=== PATIENT | male | born 2000 | race Caucasian/White ===

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

== ENCOUNTER 2020-10-05 19:22 | Observation (INO) | payer SELFPAY ==
[2020-10-05] MEDS ORDERED: LORazepam 2 MG/ML SDV ONE ×3 (19:27→19:35)
[2020-10-05] MEDS ORDERED: LORazepam 2 MG/ML SDV IVPUSH ONE ×4 (19:27→19:35)
[2020-10-05] MEDS ORDERED: Sodium Chloride 0.9% 1,000 ML IV ONE ×3 (19:39→20:01)
[2020-10-05 19:50] LABS: ANION GAP 15.6 mEq/L (7-13); CHLORIDE,CL 105 mmol/L (98-107); SODIUM,NA 147 mmol/L (136-145)
[2020-10-05] MEDS ORDERED: levETIRAcetam in NaCl (iso-os) 1,000 MG in Premix Bag 1 BAG IV ONE ×2 (20:03)
[2020-10-05 20:26] LABS: AMPHETAMINES,URINE NEGATIVE (NEGATIVE); BARBITURATES,URINE NEGATIVE (NEGATIVE); BENZODIAZEPINE,URINE POSITIVE (NEGATIVE); MDMA (ECSTASY), URINE NEGATIVE (NEGATIVE); METHADONE,URINE NEGATIVE (NEGATIVE); METHAMPHETAMINES,URINE NEGATIVE (NEGATIVE); OPIATES,URINE NEGATIVE (NEGATIVE); OXYCODONE,URINE NEGATIVE (NEGATIVE); PHENCYCLIDINE,URINE NEGATIVE (NEGATIVE); TCA,URINE NEGATIVE (NEGATIVE)
--- NOTE | 2020-10-05 20:32 | EDM.PDOC ---
ED HPI GENERAL MEDICAL PROBLEM - General Chief Complaint: Neuro Symptoms/Deficits Stated Complaint: SEIZURES Time Seen by Provider: 10/05/20 19:25 Source of Information: Reports: Patient, RN History Limitations: Reports: Other (Seizures) - History of Present Illness INITIAL COMMENTS - FREE TEXT/NARRATIVE: 20-year-old male who was brought into the ER by family for evaluation of new onset of seizures. Patient reports he was [place] with [place] couple of friends to celebrate a friend's 21st anniversary and had a couple of drinks. They went in to eat a sandwich and he started having seizures. He was noted to be having seizures about every 30 seconds which will last for about 1 to 2 minutes but he is able to carry out a conversation after each seizures. Patient was noted to have about 15-20 seizures in the ER while being given Ativan IV. Patient denies any drug use and states he does not have friends who used drugs. He does admit to drinking alcohol and smokes marijuana but not recently. He denies any family history of seizures but admits his [id number] son has seizures. He reports history of asthma. He also admits he was in the sun longer than usual. - Related Data Allergies Allergy/AdvReac Type Severity Reaction Status Date / Time No Known Allergies Allergy Verified 04/14/17 13:40 Home Meds: Home Meds Albuterol [Proventil HFA] 2 inhaler INH QID PRN 01/06/14 [History] Albuterol [Proventil Neb Soln] 2.5 mg INH QIDRT PRN 10/05/20 [History] Past Medical History - Past Health History Medical/Surgical History: Denies Medical/Surgical History HEENT History: Reports: Impaired Vision Cardiovascular History: Reports: None Respiratory History: Reports: None Gastrointestinal History: Reports: None Genitourinary History: Reports: None Musculoskeletal History: Reports: None Neurological History: Reports: Seizure Psychiatric History: Reports: None Endocrine/Metabolic History: Reports: None Hematologic History: Reports: None Immunologic History: Reports: None Oncologic (Cancer) History: Reports: None Dermatologic History: Reports: None - Infectious Disease History Infectious Disease History: Reports: None - Past Surgical History HEENT Surgical History: Reports: Myringotomy w Tube(s) Cardiovascular Surgical History: Reports: None Respiratory Surgical History: Reports: None GI Surgical History: Reports: None Male Surgical History: Reports: None Endocrine Surgical History: Reports: None Neurological Surgical History: Reports: None Musculoskeletal Surgical History: Reports: None Dermatological Surgical History: Reports: None Social & Family History - Caffeine Use Caffeine Use: Reports: Soda Other Caffeine Use: Hd a mt. wren earlier. ED ROS GENERAL - Review of Systems Review Of Systems: Unable To Obtain Reason Not Obtained: Seizures ED EXAM, NEURO - Physical Exam Exam: See Below Exam Limited By: Other Course - Vital Signs Last Recorded V/S: Last Vital Signs Temp 98.8 F 10/05/20 23:19 Pulse 56 L 10/05/20 23:19 Resp 18 10/05/20 23:19 BP 124/66 10/05/20 23:19 Pulse Ox 100 10/05/20 23:19 - Orders/Labs/Meds Orders: Medication Orders Acetaminophen (Acetaminophen 325 Mg Tab) 650 mg PO Q4H PRN PRN Reason: Pain (Mild 1-3)/fever Sodium Chloride (Sodium Chloride 0.45%) 1,000 mls @ 100 mls/hr IV ASDIRECTED ROSEANNA Last Admin: 10/06/20 00:13 Dose: 100 mls/hr Documented by: ARIANNE Levetiracetam (Levetiracetam 500 Mg Tab) 1,000 mg PO BID ROSEANNA Lorazepam (Lorazepam 2 Mg/Ml Sdv) 1 mg IVPUSH Q2H PRN PRN Reason: Seizures Ondansetron HCl (Ondansetron 4 Mg/2 Ml Sdv) 4 mg IVPUSH Q4H PRN PRN Reason: Nausea/Vomiting Sodium Chloride (Sodium Chloride 0.9% 10 Ml Syringe) 10 ml FLUSH ASDIRECTED PRN PRN Reason: Keep Vein Open Labs: Laboratory Tests 10/05/20 10/05/20 10/05/20 Range/Units 19:30 19:30 20:15 WBC 7.4 (5.0-10.0) 10^3/uL RBC 5.22 (4.6-6.2) 10^6/uL Hgb 15.8 (14.0-18.0) g/dL Hct 43.8 (40.0-54.0) % MCV 83.9 D (80-100) fL MCH 30.3 (27.0-34.0) pg MCHC 36.1 H (33.0-35.0) g/dL Plt Count 263 (150-450) 10^3/uL Neut % (Auto) 58.7 (42.2-75.2) % Lymph % (Auto) 35.2 (20.5-50.1) % [place] % (Auto) 4.3 (2-8) % Eos % (Auto) 1.4 (1.0-3.0) % Baso % (Auto) 0.4 (0.0-1.0) % Sodium 147 H (136-145) mmol/L Potassium 3.6 (3.5-5.1) mmol/L Chloride 105 (98-107) mmol/L Carbon Dioxide 30 (21-32) mmol/L Anion Gap 15.6 H (7-13) mEq/L BUN 9 (7-18) mg/dL Creatinine 1.02 (0.70-1.30) mg/dL Est Cr Clr Drug Dosing TNP Estimated GFR (MDRD) > 60 BUN/Creatinine Ratio 8.8 (No establ ref range) Glucose 99 (70-99) mg/dL Calcium 8.9 (8.5-10.1) mg/dL Total Bilirubin 0.7 (0.2-1.0) mg/dL AST 16 (15-37) U/L ALT 25 (16-63) U/L Alkaline Phosphatase 61 (46-116) U/L Total Protein 7.5 (6.4-8.2) g/dL Albumin 4.5 (3.4-5.0) g/dL Globulin 3.0 Albumin/Globulin Ratio 1.5 Urine Opiates Screen Negative (NEGATIVE) Ur Oxycodone Screen Negative (NEGATIVE) Urine Methadone Screen Negative (NEGATIVE) Ur Barbiturates Screen Negative (NEGATIVE) U Tricyclic Antidepress Negative (NEGATIVE) Ur Phencyclidine Scrn Negative (NEGATIVE) Ur Amphetamine Screen Negative (NEGATIVE) U Methamphetamines Scrn Negative (NEGATIVE) Urine MDMA Screen Negative (NEGATIVE) U Benzodiazepines Scrn Positive H (NEGATIVE) Urine Cocaine Screen Negative (NEGATIVE) U Marijuana (THC) Screen Positive H (NEGATIVE) Ethyl Alcohol 119 (0) mg/dL SARS-CoV-2 RNA (ASHLEY) (NEGATIVE) 10/05/20 Range/Units 22:32 WBC (5.0-10.0) 10^3/uL RBC (4.6-6.2) 10^6/uL Hgb (14.0-18.0) g/dL Hct (40.0-54.0) % MCV (80-100) fL MCH (27.0-34.0) pg MCHC (33.0-35.0) g/dL Plt Count (150-450) 10^3/uL Neut % (Auto) (42.2-75.2) % Lymph % (Auto) (20.5-50.1) % [place] % (Auto) (2-8) % Eos % (Auto) (1.0-3.0) % Baso % (Auto) (0.0-1.0) % Sodium (136-145) mmol/L Potassium (3.5-5.1) mmol/L Chloride (98-107) mmol/L Carbon Dioxide (21-32) mmol/L Anion Gap (7-13) mEq/L BUN (7-18) mg/dL Creatinine (0.70-1.30) mg/dL Est Cr Clr Drug Dosing Estimated GFR (MDRD) BUN/Creatinine Ratio (No establ ref range) Glucose (70-99) mg/dL Calcium (8.5-10.1) mg/dL Total Bilirubin (0.2-1.0) mg/dL AST (15-37) U/L ALT (16-63) U/L Alkaline Phosphatase (46-116) U/L Total Protein (6.4-8.2) g/dL Albumin (3.4-5.0) g/dL Globulin Albumin/Globulin Ratio Urine Opiates Screen (NEGATIVE) Ur Oxycodone Screen (NEGATIVE) Urine Methadone Screen (NEGATIVE) Ur Barbiturates Screen (NEGATIVE) U Tricyclic Antidepress (NEGATIVE) Ur Phencyclidine Scrn (NEGATIVE) Ur Amphetamine Screen (NEGATIVE) U Methamphetamines Scrn (NEGATIVE) Urine MDMA Screen (NEGATIVE) U Benzodiazepines Scrn (NEGATIVE) Urine Cocaine Screen (NEGATIVE) U Marijuana (THC) Screen (NEGATIVE) Ethyl Alcohol (0) mg/dL SARS-CoV-2 RNA (ASHLEY) Negative (NEGATIVE) Meds: Medications Generic Name Dose Route Start Last Admin Trade Name Freq PRN Reason Stop Dose Admin Acetaminophen 650 mg 10/05/20 23:19 Acetaminophen 325 Mg Tab PO Q4H PRN Pain (Mild 1-3)/fever Sodium Chloride 1,000 mls @ 100 mls/hr 10/05/20 23:30 10/06/20 00:13 Sodium Chloride 0.45% IV 100 mls/hr ASDIRECTED ROSEANNA Administration Levetiracetam 1,000 mg 10/06/20 09:00 Levetiracetam 500 Mg Tab PO BID ROSEANNA Lorazepam 1 mg 10/05/20 23:21 Lorazepam 2 Mg/Ml Sdv IVPUSH Q2H PRN Seizures Ondansetron HCl 4 mg 10/05/20 23:19 Ondansetron 4 Mg/2 Ml Sdv IVPUSH Q4H PRN Nausea/Vomiting Sodium Chloride 10 ml 10/05/20 23:19 Sodium Chloride 0.9% 10 Ml Syringe FLUSH ASDIRECTED PRN Keep Vein Open Discontinued Medications Generic Name Dose Route Start Last Admin Trade Name Freq PRN Reason Stop Dose Admin Levetiracetam Confirm 10/05/20 19:31 10/05/20 19:37 Levetiracetam In Nacl (Iso-Os) Administered 10/05/20 19:32 Not Given Dose 200 mls @ as directed .ROUTE .STK-MED ONE Sodium Chloride 1,000 mls @ 1,000 mls/hr 10/05/20 19:39 10/05/20 19:28 Normal Saline IV 10/05/20 20:38 1,000 mls/hr .BOLUS ONE Administration Sodium Chloride 1,000 mls @ 1,000 mls/hr 10/05/20 19:40 10/05/20 19:33 Normal Saline IV 10/05/20 20:39 1,000 mls/hr .BOLUS ONE Administration Sodium Chloride 1,000 mls @ 1,000 mls/hr 10/05/20 20:01 10/05/20 20:00 Normal Saline IV 10/05/20 21:00 1,000 mls/hr .BOLUS ONE Administration Levetiracetam 1,000 mg/ Premix 200 mls @ 800 mls/hr 10/05/20 20:03 10/05/20 19:37 IV 10/05/20 20:04 800 mls/hr ONETIME ONE Administration Lorazepam Confirm 10/05/20 19:27 10/05/20 19:28 Lorazepam 2 Mg/Ml Sdv Administered 10/05/20 19:28 Not Given Dose 2 mg .ROUTE .STK-MED ONE Lorazepam Confirm 10/05/20 19:30 10/05/20 19:29 Lorazepam 2 Mg/Ml Sdv Administered 10/05/20 19:31 Not Given Dose 2 mg .ROUTE .STK-MED ONE Lorazepam Confirm 10/05/20 19:35 10/05/20 19:33 Lorazepam 2 Mg/Ml Sdv Administered 10/05/20 19:36 Not Given Dose 2 mg .ROUTE .STK-MED ONE Lorazepam 1 mg 10/05/20 19:27 10/05/20 19:27 Lorazepam 2 Mg/Ml Sdv IVPUSH 10/05/20 19:28 1 mg ONETIME ONE Administration Lorazepam 1 mg 10/05/20 19:29 10/05/20 19:29 Lorazepam 2 Mg/Ml Sdv IVPUSH 10/05/20 19:30 1 mg ONETIME ONE Administration Lorazepam 2 mg 10/05/20 19:33 10/05/20 19:33 Lorazepam 2 Mg/Ml Sdv IVPUSH 10/05/20 19:34 2 mg ONETIME ONE Administration Lorazepam 2 mg 10/05/20 19:35 10/05/20 19:35 Lorazepam 2 Mg/Ml Sdv IVPUSH 10/05/20 19:36 2 mg ONETIME ONE Administration - Re-Assessments/Exams Free Text/Narrative Re-Assessment/Exam: Reviewed exam findings, CT and lab results with patient and family. Ativan 6mg, NS 1000/ml x 3 units and Keppra 1000mg IV administered. Seizures abarted after Ativan 6 mg and IV Keppra. Consulted with who recommended patient could be discharged home with Keppra BID when stable and/or follow up with PCP for Neurology referral. Patient also informed that he is not supposed to be driving in the next six months per neurology. Reviewed this with patient and family. Discussed with about admitting patient for observation and he accepted patient for admission. Patient family in agreement to plan. Departure - Departure Time of Disposition: 23:00 Disposition: Admitted As Inpatient 65 Condition: Good Clinical Impression: Alcohol abuse, Seizure, Marijuana abuse - Discharge Information Sepsis Event Note (ED) - Evaluation Sepsis Screening Result: No Definite Risk - Focused Exam Vital Signs: Vital Signs Temp Pulse Resp BP Pulse Ox 10/05/20 19:22 98.5 F 108 H 24 H 120/66 100
--- NOTE | 2020-10-05 20:34 | CT ---
PROCEDURE INFORMATION: Exam: CT Head Without Contrast Exam date and time: 10/05/2020 7:46 PM Age: 20 years old Clinical indication: Other: Seizures--new onset TECHNIQUE: Imaging protocol: Computed tomography of the head without contrast. Radiation optimization: All CT scans at this facility use at least one of these dose optimization techniques: automated exposure control; mA and/or kV adjustment per patient size (includes targeted exams where dose is matched to clinical indication); or iterative reconstruction. COMPARISON: No relevant prior studies available. FINDINGS: Brain: Normal. No hemorrhage. Unremarkable white matter. No mass effect. Cerebral ventricles: No ventriculomegaly. Paranasal sinuses: Bilateral maxillary and ethmoid sinusitis. Mastoid air cells: Visualized mastoid air cells are well aerated. Bones/joints: Unremarkable. No acute fracture. Soft tissues: Unremarkable. IMPRESSION: 1. Bilateral maxillary and ethmoid sinusitis. 2. No acute intracranial findings.
[2020-10-05] MEDS ORDERED: Acetaminophen 325 MG Tab PO PRN (23:19)
[2020-10-05] MEDS ORDERED: Ondansetron 4 MG/2 ML SDV IVPUSH PRN (23:19)
[2020-10-05] MEDS ORDERED: Sodium Chloride 0.9% 10 ML Syringe FLUSH PRN (23:19)
[2020-10-05] MEDS ORDERED: LORazepam 2 MG/ML SDV IVPUSH PRN (23:21)
--- NOTE | 2020-10-05 23:27 | PCM.HP ---
H&P History of Present Illness - General Date of Service: 10/05/20 Admit Problem/Dx: Admission Diagnosis/Problem Admission Diagnosis/Problem Seizure - History of Present Illness Initial Comments - Free Text/Narative: The patient is a 20-year-old male who presents with chief complaint of seizurenew onset. Per the patient's female business assistant, the patient was on a boat today and the son with friends when he exhibited what appeared to be a dystonic facial reaction. He had recurrent episodes and then in the emergency department he apparently had tonic-clonic episodes which required frequent doses of IV as needed Ativan. Unfortunately at the time of admission, the patient is sedated from the Ativan that he received and information is gathered from his female business assistant along with his family members. The patient presents for further evaluation - Related Data Allergies/Adverse Reactions: Allergies Allergy/AdvReac Type Severity Reaction Status Date / Time No Known Allergies Allergy Verified 04/14/17 13:40 Home Medications: Home Meds Albuterol [Proventil HFA] 2 inhaler INH QID PRN 01/06/14 [History] Albuterol [Proventil Neb Soln] 2.5 mg INH QIDRT PRN 10/05/20 [History] Past Medical History - Past Health History Medical/Surgical History: Denies Medical/Surgical History HEENT History: Reports: Impaired Vision Cardiovascular History: Reports: None Respiratory History: Reports: None Gastrointestinal History: Reports: None Genitourinary History: Reports: None Musculoskeletal History: Reports: None Neurological History: Reports: Seizure Psychiatric History: Reports: None Endocrine/Metabolic History: Reports: None Hematologic History: Reports: None Immunologic History: Reports: None Oncologic (Cancer) History: Reports: None Dermatologic History: Reports: None - Infectious Disease History Infectious Disease History: Reports: None - Past Surgical History HEENT Surgical History: Reports: Myringotomy w Tube(s) Cardiovascular Surgical History: Reports: None Respiratory Surgical History: Reports: None GI Surgical History: Reports: None Male Surgical History: Reports: None Endocrine Surgical History: Reports: None Neurological Surgical History: Reports: None Musculoskeletal Surgical History: Reports: None Dermatological Surgical History: Reports: None Social & Family History - Tobacco Use Tobacco Use Status *Q: Current Every Day Tobacco User Years of Tobacco use: 5 Packs/Tins Daily: 0 - Caffeine Use Caffeine Use: Reports: None Other Caffeine Use: Hiren wren earlier. - Alcohol Use Date of Last Drink: 10/05/20 - Recreational Drug Use Recreational Drug Use: No H&P Review of Systems - Review of Systems: Review Of Systems: See Below General: Reports: No Symptoms HEENT: Reports: No Symptoms Pulmonary: Reports: No Symptoms Cardiovascular: Reports: No Symptoms Gastrointestinal: Reports: No Symptoms Genitourinary: Reports: No Symptoms Musculoskeletal: Reports: No Symptoms Skin: Reports: No Symptoms Psychiatric: Reports: No Symptoms Neurological: Reports: No Symptoms Hematologic/Lymphatic: Reports: No Symptoms Immunologic: Reports: No Symptoms Exam - Exam Exam: See Below - Vital Signs Vital Signs: Last Vital Signs Temp 98.5 F 10/05/20 19:22 Pulse 108 H 10/05/20 19:22 Resp 24 H 10/05/20 19:22 BP 120/66 10/05/20 19:22 Pulse Ox 100 10/05/20 19:22 - Exam General: Sedated HEENT: PERRLA, Hearing Intact, Mucosa Moist & Falcon, Nares Patent, Normal Nasal Septum, Posterior Pharynx Clear, Conjunctiva Clear, EOMI, EACs Clear, TMs Clear Neck: Supple, Trachea Midline, 2 Lungs: Clear to Auscultation, Normal Respiratory Effort Cardiovascular: Regular Rate, Regular Rhythm GI/Abdominal Exam: Normal Bowel Sounds, Soft, Non-Tender, No Organomegaly, No Distention, No Abnormal Bruit, No Mass, Pelvis Stable Back Exam: Normal Inspection, Full Range of Motion, NT Extremities: Normal Inspection, Normal Range of Motion, Non-Tender, No Pedal Edema, Normal Capillary Refill Peripheral Pulses: 2+: Carotid (L), Carotid (R), Brachial (L), Brachial (R), Radial (L), Radial (R), Femoral (L), Femoral (R), Popliteal (L), Popliteal (R), Posterior Tibial (L), Posterior Tibial (R), Dorsalis Pedis (L), Dorsalis Pedis (R) Skin: Warm, Dry, Intact Neurological: Cranial Nerves Intact, Reflexes Equal Bilateral Neuro Extensive - Mental Status: Alert, Oriented x3, Normal Mood/Affect, Normal Cognition Neuro Extensive - Motor, Sensory, Reflexes: CN II-XII Intact, Normal Gait, Normal Reflexes DTR: 2+: Bicep (L), Bicep (R), Tricep (L), Tricep (R), Patella (L), Patella (R), Achilles (L), Achilles (R) Psychiatric: Alert, Normal Affect, Normal Mood - Patient Data Lab Results Last 24 hrs: Laboratory Results - last 24 hr 10/05/20 10/05/20 10/05/20 Range/Units 19:30 19:30 20:15 WBC 7.4 (5.0-10.0) 10^3/uL RBC 5.22 (4.6-6.2) 10^6/uL Hgb 15.8 (14.0-18.0) g/dL Hct 43.8 (40.0-54.0) % MCV 83.9 D (80-100) fL MCH 30.3 (27.0-34.0) pg MCHC 36.1 H (33.0-35.0) g/dL Plt Count 263 (150-450) 10^3/uL Neut % (Auto) 58.7 (42.2-75.2) % Lymph % (Auto) 35.2 (20.5-50.1) % [place] % (Auto) 4.3 (2-8) % Eos % (Auto) 1.4 (1.0-3.0) % Baso % (Auto) 0.4 (0.0-1.0) % Sodium 147 H (136-145) mmol/L Potassium 3.6 (3.5-5.1) mmol/L Chloride 105 (98-107) mmol/L Carbon Dioxide 30 (21-32) mmol/L Anion Gap 15.6 H (7-13) mEq/L BUN 9 (7-18) mg/dL Creatinine 1.02 (0.70-1.30) mg/dL Est Cr Clr Drug Dosing TNP Estimated GFR (MDRD) > 60 BUN/Creatinine Ratio 8.8 (No establ ref range) Glucose 99 (70-99) mg/dL Calcium 8.9 (8.5-10.1) mg/dL Total Bilirubin 0.7 (0.2-1.0) mg/dL AST 16 (15-37) U/L ALT 25 (16-63) U/L Alkaline Phosphatase 61 (46-116) U/L Total Protein 7.5 (6.4-8.2) g/dL Albumin 4.5 (3.4-5.0) g/dL Globulin 3.0 Albumin/Globulin Ratio 1.5 Urine Opiates Screen Negative (NEGATIVE) Ur Oxycodone Screen Negative (NEGATIVE) Urine Methadone Screen Negative (NEGATIVE) Ur Barbiturates Screen Negative (NEGATIVE) U Tricyclic Antidepress Negative (NEGATIVE) Ur Phencyclidine Scrn Negative (NEGATIVE) Ur Amphetamine Screen Negative (NEGATIVE) U Methamphetamines Scrn Negative (NEGATIVE) Urine MDMA Screen Negative (NEGATIVE) U Benzodiazepines Scrn Positive H (NEGATIVE) Urine Cocaine Screen Negative (NEGATIVE) U Marijuana (THC) Screen Positive H (NEGATIVE) Ethyl Alcohol 119 (0) mg/dL Result Diagrams: 10/05/20 19:30 10/05/20 19:30 Problem List Initiated/Reviewed/Updated: Yes Orders Last 24hrs: Active Orders 24 hr Category Date Time Status Admission Diagnosis [ADT] Stat ADT 10/05/20 23:04 Ordered Admission Status [Patient Status] [ADT] Routine ADT 10/05/20 23:04 Active Antiembolic Devices [RC] PER UNIT ROUTINE Care 10/05/20 23:20 Ordered Peripheral IV Care [RC] . DIRECTED Care 10/05/20 23:20 Ordered Up With Assistance [RC] ASDIRECTED Care 10/05/20 23:19 Ordered Vital Signs [RC] Q4H Care 10/05/20 23:19 Ordered Regular Diet [DIET] Diet 10/05/20 Breakfast Ordered CORONAVIRUS COVID-19 ASHLEY [MOLEC] Urgent Lab 10/05/20 22:32 Received MAGNESIUM [CHEM] Routine Lab 10/06/20 05:00 Ordered SODIUM,NA [CHEM] Routine Lab 10/06/20 05:00 Ordered Acetaminophen [TylenoL] Med 10/05/20 23:19 Ordered 650 mg PO Q4H PRN LORazepam [Ativan] Med 10/05/20 23:21 Ordered 1 mg IVPUSH Q2H PRN Ondansetron [Zofran] Med 10/05/20 23:19 Ordered 4 mg IVPUSH Q4H PRN Sodium Chloride 0.45% @ 100 MLS/HR(1,000ml) Med 10/05/20 23:30 Ordered Sodium Chloride 0.45% 1,000 ml IV ASDIRECTED Sodium Chloride 0.9% [Saline Flush] Med 10/05/20 23:19 Ordered 10 ml FLUSH ASDIRECTED PRN levETIRAcetam [Keppra] Med 10/06/20 09:00 Ordered 1,000 mg PO BID Peripheral IV Insertion Adult [OM.PC] Routine Oth 10/05/20 23:19 Ordered Seizure Precautions [OM.PC] Routine Oth 10/05/20 23:20 Ordered Sequential Compression Device [OM.PC] Per Unit Routine Oth 10/05/20 23:20 Ordered Resuscitation Status Routine Resus Stat 10/05/20 23:19 Ordered Medication Orders Acetaminophen (Acetaminophen 325 Mg Tab) 650 mg PO Q4H PRN PRN Reason: Pain (Mild 1-3)/fever Ondansetron HCl (Ondansetron 4 Mg/2 Ml Sdv) 4 mg IVPUSH Q4H PRN PRN Reason: Nausea/Vomiting Sodium Chloride (Sodium Chloride 0.9% 10 Ml Syringe) 10 ml FLUSH ASDIRECTED PRN PRN Reason: Keep Vein Open Assessment/Plan Comment:: Surgical History: Per patient's family members: Bilateral myringotomy tube placement, wisdom tooth extraction Family History: Per patient's family members: Cancer, stroke, diabetes, coronary artery disease, hypertension, hyperlipidemia Social History: Tobacco: Per patient's family members: The patient vapes Alcohol: Per patient's family members: The patient drinks intermittently however he appears to have episodes of binge drinking when he does Caffeine: Per the patient's family members: Cola Drugs: Per the patient family members: Marijuana Allergies: Per the patient's family members: No known drug allergies Code Status: Full Assessment / Plan: Seizure, new onset. Possibly alcohol use. Seizure precautions. Keppra 1000 mg IV every 12 hours Hypernatremia. Will monitor sodium levels intermittently. IV half-normal saline at 100 mL's per hour Asthma Marijuana abuse. Patient be counseled regarding marijuana cessation. Tobacco abuse via vaping. The patient will be counseled regarding tobacco cessation DVT prophylaxis. Bilateral CD Disposition: Anticipate discharge in 24 hours with outpatient follow-up with neurology END DOCTOR SANTOS HISTORY AND PHYSICAL / CONSULTATION NOTE
[2020-10-06] MEDS: Sodium Chloride 0.45% 1,000 ML IV SCH ×2 (00:13→10:40)
--- NOTE | 2020-10-06 07:25 | PCM.PN ---
- General Info Date of Service: 10/06/20 Subjective Update: Patient indicates that he is feeling better overall. Per the nursing staff, left patient received Ativan was approximately 1900 on the evening of October 05, 2020. The patient denies fever, rigors, nausea, vomiting, cough, wheeze, abdominal pain, dyspnea, diplopia, blurry vision, dysphagia, dysphagia, paresthesia/anesthesia/myesthesia of any part of his body. I explained to the patient his current medical condition and plan of care and have answered all of his questions - Review of Systems General: Reports: No Symptoms HEENT: Reports: No Symptoms Pulmonary: Reports: No Symptoms Cardiovascular: Reports: No Symptoms Gastrointestinal: Reports: No Symptoms Genitourinary: Reports: No Symptoms Musculoskeletal: Reports: No Symptoms Skin: Reports: No Symptoms Neurological: Reports: No Symptoms Psychiatric: Reports: No Symptoms - Patient Data Vitals - Most Recent: Last Vital Signs Temp 97.9 F 10/06/20 04:00 Pulse 74 10/06/20 04:00 Resp 18 10/06/20 04:00 BP 90/43 L 10/06/20 04:00 Pulse Ox 95 10/06/20 04:00 Weight - Most Recent: 170 lb 4.8 oz I&O - Last 24 Hours: Intake & Output 10/05/20 10/06/20 10/06/20 22:59 06:59 14:59 Intake Total 50 Balance 50 Lab Results Last 24 Hours: Laboratory Results - last 24 hr 10/05/20 10/05/20 10/05/20 Range/Units 19:30 19:30 20:15 WBC 7.4 (5.0-10.0) 10^3/uL RBC 5.22 (4.6-6.2) 10^6/uL Hgb 15.8 (14.0-18.0) g/dL Hct 43.8 (40.0-54.0) % MCV 83.9 D (80-100) fL MCH 30.3 (27.0-34.0) pg MCHC 36.1 H (33.0-35.0) g/dL Plt Count 263 (150-450) 10^3/uL Neut % (Auto) 58.7 (42.2-75.2) % Lymph % (Auto) 35.2 (20.5-50.1) % [place] % (Auto) 4.3 (2-8) % Eos % (Auto) 1.4 (1.0-3.0) % Baso % (Auto) 0.4 (0.0-1.0) % Sodium 147 H (136-145) mmol/L Potassium 3.6 (3.5-5.1) mmol/L Chloride 105 (98-107) mmol/L Carbon Dioxide 30 (21-32) mmol/L Anion Gap 15.6 H (7-13) mEq/L BUN 9 (7-18) mg/dL Creatinine 1.02 (0.70-1.30) mg/dL Est Cr Clr Drug Dosing TNP Estimated GFR (MDRD) > 60 BUN/Creatinine Ratio 8.8 (No establ ref range) Glucose 99 (70-99) mg/dL Calcium 8.9 (8.5-10.1) mg/dL Magnesium (1.8-2.4) mg/dL Total Bilirubin 0.7 (0.2-1.0) mg/dL AST 16 (15-37) U/L ALT 25 (16-63) U/L Alkaline Phosphatase 61 (46-116) U/L Total Protein 7.5 (6.4-8.2) g/dL Albumin 4.5 (3.4-5.0) g/dL Globulin 3.0 Albumin/Globulin Ratio 1.5 Urine Opiates Screen Negative (NEGATIVE) Ur Oxycodone Screen Negative (NEGATIVE) Urine Methadone Screen Negative (NEGATIVE) Ur Barbiturates Screen Negative (NEGATIVE) U Tricyclic Antidepress Negative (NEGATIVE) Ur Phencyclidine Scrn Negative (NEGATIVE) Ur Amphetamine Screen Negative (NEGATIVE) U Methamphetamines Scrn Negative (NEGATIVE) Urine MDMA Screen Negative (NEGATIVE) U Benzodiazepines Scrn Positive H (NEGATIVE) Urine Cocaine Screen Negative (NEGATIVE) U Marijuana (THC) Screen Positive H (NEGATIVE) Ethyl Alcohol 119 (0) mg/dL SARS-CoV-2 RNA (ASHLEY) (NEGATIVE) 10/05/20 10/06/20 Range/Units 22:32 05:40 WBC (5.0-10.0) 10^3/uL RBC (4.6-6.2) 10^6/uL Hgb (14.0-18.0) g/dL Hct (40.0-54.0) % MCV (80-100) fL MCH (27.0-34.0) pg MCHC (33.0-35.0) g/dL Plt Count (150-450) 10^3/uL Neut % (Auto) (42.2-75.2) % Lymph % (Auto) (20.5-50.1) % [place] % (Auto) (2-8) % Eos % (Auto) (1.0-3.0) % Baso % (Auto) (0.0-1.0) % Sodium 144 (136-145) mmol/L Potassium (3.5-5.1) mmol/L Chloride (98-107) mmol/L Carbon Dioxide (21-32) mmol/L Anion Gap (7-13) mEq/L BUN (7-18) mg/dL Creatinine (0.70-1.30) mg/dL Est Cr Clr Drug Dosing Estimated GFR (MDRD) BUN/Creatinine Ratio (No establ ref range) Glucose (70-99) mg/dL Calcium (8.5-10.1) mg/dL Magnesium 1.8 (1.8-2.4) mg/dL Total Bilirubin (0.2-1.0) mg/dL AST (15-37) U/L ALT (16-63) U/L Alkaline Phosphatase (46-116) U/L Total Protein (6.4-8.2) g/dL Albumin (3.4-5.0) g/dL Globulin Albumin/Globulin Ratio Urine Opiates Screen (NEGATIVE) Ur Oxycodone Screen (NEGATIVE) Urine Methadone Screen (NEGATIVE) Ur Barbiturates Screen (NEGATIVE) U Tricyclic Antidepress (NEGATIVE) Ur Phencyclidine Scrn (NEGATIVE) Ur Amphetamine Screen (NEGATIVE) U Methamphetamines Scrn (NEGATIVE) Urine MDMA Screen (NEGATIVE) U Benzodiazepines Scrn (NEGATIVE) Urine Cocaine Screen (NEGATIVE) U Marijuana (THC) Screen (NEGATIVE) Ethyl Alcohol (0) mg/dL SARS-CoV-2 RNA (ASHLEY) Negative (NEGATIVE) Med Orders - Current: Current Medications Acetaminophen (Acetaminophen 325 Mg Tab) 650 mg PO Q4H PRN PRN Reason: Pain (Mild 1-3)/fever Sodium Chloride (Sodium Chloride 0.45%) 1,000 mls @ 100 mls/hr IV ASDIRECTED [facility] Last Admin: 10/06/20 00:13 Dose: 100 mls/hr Documented by: Levetiracetam (Levetiracetam 500 Mg Tab) 1,000 mg PO BID ROSEANNA Lorazepam (Lorazepam 2 Mg/Ml Sdv) 1 mg IVPUSH Q2H PRN PRN Reason: Seizures Ondansetron HCl (Ondansetron 4 Mg/2 Ml Sdv) 4 mg IVPUSH Q4H PRN PRN Reason: Nausea/Vomiting Sodium Chloride (Sodium Chloride 0.9% 10 Ml Syringe) 10 ml FLUSH ASDIRECTED PRN PRN Reason: Keep Vein Open Discontinued Medications Levetiracetam (Levetiracetam In Nacl (Iso-Os)) Confirm Administered Dose 200 mls @ as directed .ROUTE .STK-MED ONE Stop: 10/05/20 19:32 Last Admin: 10/05/20 19:37 Dose: Not Given Documented by: Sodium Chloride (Normal Saline) 1,000 mls @ 1,000 mls/hr IV .BOLUS ONE Stop: 10/05/20 20:38 Last Admin: 10/05/20 19:28 Dose: 1,000 mls/hr Documented by: Sodium Chloride (Normal Saline) 1,000 mls @ 1,000 mls/hr IV .BOLUS ONE Stop: 10/05/20 20:39 Last Admin: 10/05/20 19:33 Dose: 1,000 mls/hr Documented by: Sodium Chloride (Normal Saline) 1,000 mls @ 1,000 mls/hr IV .BOLUS ONE Stop: 10/05/20 21:00 Last Admin: 10/05/20 20:00 Dose: 1,000 mls/hr Documented by: Levetiracetam 1,000 mg/ Premix 200 mls @ 800 mls/hr IV ONETIME ONE Stop: 10/05/20 20:04 Last Admin: 10/05/20 19:37 Dose: 800 mls/hr Documented by: Lorazepam (Lorazepam 2 Mg/Ml Sdv) Confirm Administered Dose 2 mg .ROUTE .STK-MED ONE Stop: 10/05/20 19:28 Last Admin: 10/05/20 19:28 Dose: Not Given Documented by: Lorazepam (Lorazepam 2 Mg/Ml Sdv) Confirm Administered Dose 2 mg .ROUTE .STK-MED ONE Stop: 10/05/20 19:31 Last Admin: 10/05/20 19:29 Dose: Not Given Documented by: Lorazepam (Lorazepam 2 Mg/Ml Sdv) Confirm Administered Dose 2 mg .ROUTE .STK-MED ONE Stop: 10/05/20 19:36 Last Admin: 10/05/20 19:33 Dose: Not Given Documented by: Lorazepam (Lorazepam 2 Mg/Ml Sdv) 1 mg IVPUSH ONETIME ONE Stop: 10/05/20 19:28 Last Admin: 10/05/20 19:27 Dose: 1 mg Documented by: Lorazepam (Lorazepam 2 Mg/Ml Sdv) 1 mg IVPUSH ONETIME ONE Stop: 10/05/20 19:30 Last Admin: 10/05/20 19:29 Dose: 1 mg Documented by: Lorazepam (Lorazepam 2 Mg/Ml Sdv) 2 mg IVPUSH ONETIME ONE Stop: 10/05/20 19:34 Last Admin: 10/05/20 19:33 Dose: 2 mg Documented by: Lorazepam (Lorazepam 2 Mg/Ml Sdv) 2 mg IVPUSH ONETIME ONE Stop: 10/05/20 19:36 Last Admin: 10/05/20 19:35 Dose: 2 mg Documented by: - Exam General: Alert, Oriented HEENT: Pupils Equal, Pupils Reactive, EOMI, Mucous Membr. Moist/[place] Neck: Supple Lungs: Clear to Auscultation, Normal Respiratory Effort Cardiovascular: Regular Rate, Regular Rhythm GI/Abdominal Exam: Normal Bowel Sounds, Soft, Non-Tender, No Organomegaly, No Distention, No Abnormal Bruit, No Mass, Pelvis Stable Back Exam: Normal Inspection, Full Range of Motion Extremities: Normal Inspection, Normal Range of Motion, Non-Tender, No Pedal Edema, Normal Capillary Refill Peripheral Pulses: 2+: Carotid (L), Carotid (R), Brachial (L), Brachial (R), Radial (L), Radial (R), Femoral (L), Femoral (R), Popliteal (L), Popliteal (R), Posterior Tibial (L), Posterior Tibial (R), Dorsalis Pedis (L), Dorsalis Pedis (R) Skin: Warm, Dry, Intact Wound/Incisions: Healing Well Neurological: No New Focal Deficit Psy/Mental Status: Alert, Normal Affect, Normal Mood - Patient Data Lab Results Last 24 hrs: Laboratory Results - last 24 hr 10/05/20 10/05/20 10/05/20 Range/Units 19:30 19:30 20:15 WBC 7.4 (5.0-10.0) 10^3/uL RBC 5.22 (4.6-6.2) 10^6/uL Hgb 15.8 (14.0-18.0) g/dL Hct 43.8 (40.0-54.0) % MCV 83.9 D (80-100) fL MCH 30.3 (27.0-34.0) pg MCHC 36.1 H (33.0-35.0) g/dL Plt Count 263 (150-450) 10^3/uL Neut % (Auto) 58.7 (42.2-75.2) % Lymph % (Auto) 35.2 (20.5-50.1) % [place] % (Auto) 4.3 (2-8) % Eos % (Auto) 1.4 (1.0-3.0) % Baso % (Auto) 0.4 (0.0-1.0) % Sodium 147 H (136-145) mmol/L Potassium 3.6 (3.5-5.1) mmol/L Chloride 105 (98-107) mmol/L Carbon Dioxide 30 (21-32) mmol/L Anion Gap 15.6 H (7-13) mEq/L BUN 9 (7-18) mg/dL Creatinine 1.02 (0.70-1.30) mg/dL Est Cr Clr Drug Dosing TNP Estimated GFR (MDRD) > 60 BUN/Creatinine Ratio 8.8 (No establ ref range) Glucose 99 (70-99) mg/dL Calcium 8.9 (8.5-10.1) mg/dL Magnesium (1.8-2.4) mg/dL Total Bilirubin 0.7 (0.2-1.0) mg/dL AST 16 (15-37) U/L ALT 25 (16-63) U/L Alkaline Phosphatase 61 (46-116) U/L Total Protein 7.5 (6.4-8.2) g/dL Albumin 4.5 (3.4-5.0) g/dL Globulin 3.0 Albumin/Globulin Ratio 1.5 Urine Opiates Screen Negative (NEGATIVE) Ur Oxycodone Screen Negative (NEGATIVE) Urine Methadone Screen Negative (NEGATIVE) Ur Barbiturates Screen Negative (NEGATIVE) U Tricyclic Antidepress Negative (NEGATIVE) Ur Phencyclidine Scrn Negative (NEGATIVE) Ur Amphetamine Screen Negative (NEGATIVE) U Methamphetamines Scrn Negative (NEGATIVE) Urine MDMA Screen Negative (NEGATIVE) U Benzodiazepines Scrn Positive H (NEGATIVE) Urine Cocaine Screen Negative (NEGATIVE) U Marijuana (THC) Screen Positive H (NEGATIVE) Ethyl Alcohol 119 (0) mg/dL SARS-CoV-2 RNA (ASHLEY) (NEGATIVE) 10/05/20 10/06/20 Range/Units 22:32 05:40 WBC (5.0-10.0) 10^3/uL RBC (4.6-6.2) 10^6/uL Hgb (14.0-18.0) g/dL Hct (40.0-54.0) % MCV (80-100) fL MCH (27.0-34.0) pg MCHC (33.0-35.0) g/dL Plt Count (150-450) 10^3/uL Neut % (Auto) (42.2-75.2) % Lymph % (Auto) (20.5-50.1) % [place] % (Auto) (2-8) % Eos % (Auto) (1.0-3.0) % Baso % (Auto) (0.0-1.0) % Sodium 144 (136-145) mmol/L Potassium (3.5-5.1) mmol/L Chloride (98-107) mmol/L Carbon Dioxide (21-32) mmol/L Anion Gap (7-13) mEq/L BUN (7-18) mg/dL Creatinine (0.70-1.30) mg/dL Est Cr Clr Drug Dosing Estimated GFR (MDRD) BUN/Creatinine Ratio (No establ ref range) Glucose (70-99) mg/dL Calcium (8.5-10.1) mg/dL Magnesium 1.8 (1.8-2.4) mg/dL Total Bilirubin (0.2-1.0) mg/dL AST (15-37) U/L ALT (16-63) U/L Alkaline Phosphatase (46-116) U/L Total Protein (6.4-8.2) g/dL Albumin (3.4-5.0) g/dL Globulin Albumin/Globulin Ratio Urine Opiates Screen (NEGATIVE) Ur Oxycodone Screen (NEGATIVE) Urine Methadone Screen (NEGATIVE) Ur Barbiturates Screen (NEGATIVE) U Tricyclic Antidepress (NEGATIVE) Ur Phencyclidine Scrn (NEGATIVE) Ur Amphetamine Screen (NEGATIVE) U Methamphetamines Scrn (NEGATIVE) Urine MDMA Screen (NEGATIVE) U Benzodiazepines Scrn (NEGATIVE) Urine Cocaine Screen (NEGATIVE) U Marijuana (THC) Screen (NEGATIVE) Ethyl Alcohol (0) mg/dL SARS-CoV-2 RNA (ASHLEY) Negative (NEGATIVE) Result Diagrams: 10/05/20 19:30 10/06/20 05:40 Sepsis Event Note - Evaluation Sepsis Screening Result: No Definite Risk - Focused Exam Vital Signs: Vital Signs Temp Pulse Resp BP BP Pulse Ox 10/06/20 04:00 97.9 F 74 18 90/43 L 95 10/05/20 23:19 98.8 F 56 L 18 124/66 113/50 L 100 - Problem List Review Problem List Initiated/Reviewed/Updated: Yes - My Orders Last 24 Hours: My Active Orders 10/05/20 Breakfast Regular Diet [DIET] 10/05/20 23:19 Up With Assistance [RC] ASDIRECTED Vital Signs [RC] 00,04,08,12,16,20 Acetaminophen [TylenoL] 650 mg PO Q4H PRN Ondansetron [Zofran] 4 mg IVPUSH Q4H PRN Sodium Chloride 0.9% [Saline Flush] 10 ml FLUSH ASDIRECTED PRN Peripheral IV Insertion Adult [OM.PC] Routine Resuscitation Status Routine 10/05/20 23:20 Antiembolic Devices [RC] 09,21 Peripheral IV Care [RC] 08,20 Seizure Precautions [OM.PC] Routine Sequential Compression Device [OM.PC] Per Unit Routine 10/05/20 23:21 LORazepam [Ativan] 1 mg IVPUSH Q2H PRN 10/05/20 23:28 Aspiration Precautions [RC] ASDIRECTED 10/05/20 23:30 Sodium Chloride 0.45% 1,000 ml IV ASDIRECTED 10/06/20 09:00 levETIRAcetam [Keppra] 1,000 mg PO BID - Plan Plan:: Surgical History: Per patient's family members: Bilateral myringotomy tube placement, wisdom tooth extraction Family History: Per patient's family members: Cancer, stroke, diabetes, coronary artery disease, hypertension, hyperlipidemia Social History: Tobacco: Per patient's family members: The patient vapes Alcohol: Per patient's family members: The patient drinks intermittently however he appears to have episodes of binge drinking when he does Caffeine: Per the patient's family members: Cola Drugs: Per the patient family members: Marijuana Allergies: Per the patient's family members: No known drug allergies Code Status: Full Assessment / Plan: Seizure, new onset. Possibly alcohol use. Seizure precautions. Keppra 1000 mg IV every 12 hours Hypernatremia. Will monitor sodium levels intermittently. IV half-normal saline at 100 mL's per hour Asthma Marijuana abuse. Patient be counseled regarding marijuana cessation. Tobacco abuse via vaping. The patient will be counseled regarding tobacco cessation DVT prophylaxis. Bilateral CD Disposition: I will plan to discharge the patient at 1500 on this day of October 06, 2020 if he exhibits no further seizure activity and does not require any further Ativan END OF DOCTOR EMAMIS HISTORY AND PHYSICAL / CONSULTATION NOTE
[2020-10-06] MEDS ORDERED: levETIRAcetam 500 MG Tab PO SCH (09:00)
[2020-10-06 12:09] VITALS: BP 91/30; PULSE 60
--- NOTE | 2020-10-06 14:58 | PCM.DCSUM1 ---
Discharge Summary - Hospital Course Free Text/Narrative:: START OF DOCTOR EMAMIS DISCHARGE SUMMARY Date of Admission: October 05, 2020 Date of Discharge: 2:56 PM on October 06, 2020 Primary Diagnosis: Seizurenew onset, likely secondary to dehydration coupled with acute alcohol intoxication, marijuana use, with urine drug screen positive for benzodiazepine Secondary Diagnosis: Hyponatremia, resolved Asthma Marijuana abuse Tobacco abuse via vaping Consultations: None Condition on Discharge: Fair Disposition: The patient will be advised to follow-up with neurology as soon as possible for evaluation for his seizure which I suspect will not be a recurring issue with the exception of alcohol acute alcohol intoxication/binge drinking for which the patient appears to engage in. He will be advised that he is not permitted to drive or operate machinery until he is seen and evaluated by a neurologist and received permission/clearance to do so Discharge Medications: DuoNeb 4 times daily as needed shortness of breath/wheeze Proventil HFA: 90 mcg/spray: 2 puffs 4 times daily as needed shortness of breath/wheeze Keppra 500 mg p.o. twice daily END OF DOCTOR EMAMIS DISCHARGE SUMMARY - Discharge Data Discharge Date: 10/06/20 Discharge Disposition: Home, Self-Care 01 Condition: Fair - Referral to Home Health Primary Care Physician: PCP None - Patient Instructions Diet: Regular Diet as Tolerated Activity, Other: Activity as tolerated however the patient is not permitted to drive or oper Driving, Other: Activity as tolerated however the patient is not permitted to drive or oper - Discharge Plan Prescriptions/Med Rec: levETIRAcetam [Keppra] 500 mg PO BID 30 Days #60 tab Home Medications: Home Meds Albuterol [Proventil HFA] 2 inhaler INH QID PRN 01/06/14 [History] Albuterol [Proventil] 2.5 mg INH QIDRT PRN 10/05/20 [History] levETIRAcetam [Keppra] 500 mg PO BID 30 Days #60 tab 10/06/20 [Rx] Patient Handouts: Preventing Heat Exhaustion, Adult, Alcohol Intoxication, [id number], Dehydration, Adult, [id number], Seizure, Adult, [id number] Referrals: PCP,None [Primary Care Provider] - - Discharge Summary/Plan Comment DC Time >30 min.: Yes - General Info Date of Service: 10/06/20 - Review of Systems General: Reports: No Symptoms HEENT: Reports: No Symptoms Pulmonary: Reports: No Symptoms Cardiovascular: Reports: No Symptoms Gastrointestinal: Reports: No Symptoms Genitourinary: Reports: No Symptoms Musculoskeletal: Reports: No Symptoms Skin: Reports: No Symptoms Neurological: Reports: No Symptoms Psychiatric: Reports: No Symptoms - Patient Data Vitals - Most Recent: Last Vital Signs Temp 98.4 F 10/06/20 12:00 Pulse 60 10/06/20 12:00 Resp 14 10/06/20 12:00 BP 91/30 L 10/06/20 12:00 Pulse Ox 98 10/06/20 12:00 Weight - Most Recent: 170 lb 4.8 oz I&O - Last 24 hours: Intake & Output 10/05/20 10/06/20 10/06/20 22:59 06:59 14:59 Intake Total 50 50 Balance 50 50 Lab Results - Last 24 hrs: Laboratory Results - last 24 hr 10/05/20 10/05/20 10/05/20 Range/Units 19:30 19:30 20:15 WBC 7.4 (5.0-10.0) 10^3/uL RBC 5.22 (4.6-6.2) 10^6/uL Hgb 15.8 (14.0-18.0) g/dL Hct 43.8 (40.0-54.0) % MCV 83.9 D (80-100) fL MCH 30.3 (27.0-34.0) pg MCHC 36.1 H (33.0-35.0) g/dL Plt Count 263 (150-450) 10^3/uL Neut % (Auto) 58.7 (42.2-75.2) % Lymph % (Auto) 35.2 (20.5-50.1) % [place] % (Auto) 4.3 (2-8) % Eos % (Auto) 1.4 (1.0-3.0) % Baso % (Auto) 0.4 (0.0-1.0) % Sodium 147 H (136-145) mmol/L Potassium 3.6 (3.5-5.1) mmol/L Chloride 105 (98-107) mmol/L Carbon Dioxide 30 (21-32) mmol/L Anion Gap 15.6 H (7-13) mEq/L BUN 9 (7-18) mg/dL Creatinine 1.02 (0.70-1.30) mg/dL Est Cr Clr Drug Dosing TNP Estimated GFR (MDRD) > 60 BUN/Creatinine Ratio 8.8 (No establ ref range) Glucose 99 (70-99) mg/dL Calcium 8.9 (8.5-10.1) mg/dL Magnesium (1.8-2.4) mg/dL Total Bilirubin 0.7 (0.2-1.0) mg/dL AST 16 (15-37) U/L ALT 25 (16-63) U/L Alkaline Phosphatase 61 (46-116) U/L Total Protein 7.5 (6.4-8.2) g/dL Albumin 4.5 (3.4-5.0) g/dL Globulin 3.0 Albumin/Globulin Ratio 1.5 Urine Opiates Screen Negative (NEGATIVE) Ur Oxycodone Screen Negative (NEGATIVE) Urine Methadone Screen Negative (NEGATIVE) Ur Barbiturates Screen Negative (NEGATIVE) U Tricyclic Antidepress Negative (NEGATIVE) Ur Phencyclidine Scrn Negative (NEGATIVE) Ur Amphetamine Screen Negative (NEGATIVE) U Methamphetamines Scrn Negative (NEGATIVE) Urine MDMA Screen Negative (NEGATIVE) U Benzodiazepines Scrn Positive H (NEGATIVE) Urine Cocaine Screen Negative (NEGATIVE) U Marijuana (THC) Screen Positive H (NEGATIVE) Ethyl Alcohol 119 (0) mg/dL SARS-CoV-2 RNA (ASHLEY) (NEGATIVE) 10/05/20 10/06/20 Range/Units 22:32 05:40 WBC (5.0-10.0) 10^3/uL RBC (4.6-6.2) 10^6/uL Hgb (14.0-18.0) g/dL Hct (40.0-54.0) % MCV (80-100) fL MCH (27.0-34.0) pg MCHC (33.0-35.0) g/dL Plt Count (150-450) 10^3/uL Neut % (Auto) (42.2-75.2) % Lymph % (Auto) (20.5-50.1) % [place] % (Auto) (2-8) % Eos % (Auto) (1.0-3.0) % Baso % (Auto) (0.0-1.0) % Sodium 144 (136-145) mmol/L Potassium (3.5-5.1) mmol/L Chloride (98-107) mmol/L Carbon Dioxide (21-32) mmol/L Anion Gap (7-13) mEq/L BUN (7-18) mg/dL Creatinine (0.70-1.30) mg/dL Est Cr Clr Drug Dosing Estimated GFR (MDRD) BUN/Creatinine Ratio (No establ ref range) Glucose (70-99) mg/dL Calcium (8.5-10.1) mg/dL Magnesium 1.8 (1.8-2.4) mg/dL Total Bilirubin (0.2-1.0) mg/dL AST (15-37) U/L ALT (16-63) U/L Alkaline Phosphatase (46-116) U/L Total Protein (6.4-8.2) g/dL Albumin (3.4-5.0) g/dL Globulin Albumin/Globulin Ratio Urine Opiates Screen (NEGATIVE) Ur Oxycodone Screen (NEGATIVE) Urine Methadone Screen (NEGATIVE) Ur Barbiturates Screen (NEGATIVE) U Tricyclic Antidepress (NEGATIVE) Ur Phencyclidine Scrn (NEGATIVE) Ur Amphetamine Screen (NEGATIVE) U Methamphetamines Scrn (NEGATIVE) Urine MDMA Screen (NEGATIVE) U Benzodiazepines Scrn (NEGATIVE) Urine Cocaine Screen (NEGATIVE) U Marijuana (THC) Screen (NEGATIVE) Ethyl Alcohol (0) mg/dL SARS-CoV-2 RNA ([facility]LEY) Negative (NEGATIVE) Med Orders - Current: Current Medications Acetaminophen (Acetaminophen 325 Mg Tab) 650 mg PO Q4H PRN PRN Reason: Pain (Mild 1-3)/fever Last Admin: 10/06/20 08:20 Dose: 650 mg Documented by: Sodium Chloride (Sodium Chloride 0.45%) 1,000 mls @ 100 mls/hr IV ASDIRECTED ROSEANNA Last Admin: 10/06/20 10:40 Dose: 100 mls/hr Documented by: Levetiracetam (Levetiracetam 500 Mg Tab) 1,000 mg PO BID [facility] Last Admin: 10/06/20 08:20 Dose: 1,000 mg Documented by: Lorazepam (Lorazepam 2 Mg/Ml Sdv) 1 mg IVPUSH Q2H PRN PRN Reason: Seizures Ondansetron HCl (Ondansetron 4 Mg/2 Ml Sdv) 4 mg IVPUSH Q4H PRN PRN Reason: Nausea/Vomiting Sodium Chloride (Sodium Chloride 0.9% 10 Ml Syringe) 10 ml FLUSH ASDIRECTED PRN PRN Reason: Keep Vein Open Discontinued Medications Levetiracetam (Levetiracetam In Nacl (Iso-Os)) Confirm Administered Dose 200 mls @ as directed .ROUTE .STK-MED ONE Stop: 10/05/20 19:32 Last Admin: 10/05/20 19:37 Dose: Not Given Documented by: Sodium Chloride (Normal Saline) 1,000 mls @ 1,000 mls/hr IV .BOLUS ONE Stop: 10/05/20 20:38 Last Admin: 10/05/20 19:28 Dose: 1,000 mls/hr Documented by: Sodium Chloride (Normal Saline) 1,000 mls @ 1,000 mls/hr IV .BOLUS ONE Stop: 10/05/20 20:39 Last Admin: 10/05/20 19:33 Dose: 1,000 mls/hr Documented by: Sodium Chloride (Normal Saline) 1,000 mls @ 1,000 mls/hr IV .BOLUS ONE Stop: 10/05/20 21:00 Last Admin: 10/05/20 20:00 Dose: 1,000 mls/hr Documented by: Levetiracetam 1,000 mg/ Premix 200 mls @ 800 mls/hr IV ONETIME ONE Stop: 10/05/20 20:04 Last Admin: 10/05/20 19:37 Dose: 800 mls/hr Documented by: Lorazepam (Lorazepam 2 Mg/Ml Sdv) Confirm Administered Dose 2 mg .ROUTE .STK-MED ONE Stop: 10/05/20 19:28 Last Admin: 10/05/20 19:28 Dose: Not Given Documented by: Lorazepam (Lorazepam 2 Mg/Ml Sdv) Confirm Administered Dose 2 mg .ROUTE .STK-MED ONE Stop: 10/05/20 19:31 Last Admin: 10/05/20 19:29 Dose: Not Given Documented by: Lorazepam (Lorazepam 2 Mg/Ml Sdv) Confirm Administered Dose 2 mg .ROUTE .STK-MED ONE Stop: 10/05/20 19:36 Last Admin: 10/05/20 19:33 Dose: Not Given Documented by: Lorazepam (Lorazepam 2 Mg/Ml Sdv) 1 mg IVPUSH ONETIME ONE Stop: 10/05/20 19:28 Last Admin: 10/05/20 19:27 Dose: 1 mg Documented by: Lorazepam (Lorazepam 2 Mg/Ml Sdv) 1 mg IVPUSH ONETIME ONE Stop: 10/05/20 19:30 Last Admin: 10/05/20 19:29 Dose: 1 mg Documented by: Lorazepam (Lorazepam 2 Mg/Ml Sdv) 2 mg IVPUSH ONETIME ONE Stop: 10/05/20 19:34 Last Admin: 10/05/20 19:33 Dose: 2 mg Documented by: Lorazepam (Lorazepam 2 Mg/Ml Sdv) 2 mg IVPUSH ONETIME ONE Stop: 10/05/20 19:36 Last Admin: 10/05/20 19:35 Dose: 2 mg Documented by: - Exam General: Reports: Alert, Oriented HEENT: Reports: Pupils Equal, Pupils Reactive, EOMI, Mucous Membr. Moist/[place] Neck: Reports: Supple Lungs: Reports: Clear to Auscultation, Normal Respiratory Effort Cardiovascular: Reports: Regular Rate, Regular Rhythm GI/Abdominal Exam: Normal Bowel Sounds, Soft, Non-Tender, No Organomegaly, No Distention, No Abnormal Bruit, No Mass, Pelvis Stable Back Exam: Reports: Normal Inspection, Full Range of Motion Extremities: Normal Inspection, Normal Range of Motion, Non-Tender, No Pedal Edema, Normal Capillary Refill Skin: Reports: Warm, Dry, Intact Wound/Incisions: Reports: Healing Well Neurological: Reports: No New Focal Deficit Psy/Mental Status: Reports: Alert, Normal Affect, Normal Mood
== END 2020-10-06 15:45 | disposition home or self-care (01) ==
LOC: DL.ED 19:22 → DL.MS 23:04
PROVIDERS: ADMIT Internal Medicine; ATTEND Internal Medicine
DX: R56.9 Unspecified convulsions (principal); E87.1 Hypo-osmolality and hyponatremia; J45.909 Unspecified asthma, uncomplicated; F12.10 Cannabis abuse, uncomplicated; Z20.822 Contact with and (suspected) exposure to COVID-19; F17.210 Nicotine dependence, cigarettes, uncomplicated; F10.129 Alcohol abuse with intoxication, unspecified; Y90.0 Blood alcohol level of less than 20 mg/100 ml
CPT/HCPCS: 36415; 70450; 80053; 80305-QW; 80307; 83735; 84295; 85025; 96365; 96375; 99217; 99219; 99284; 99285-25; A9270-GY; G0378; J1953; J2060; J7030; U0002

== ENCOUNTER 2021-05-13 10:29 | Emergency (ER) | payer SELFPAY ==
[2021-05-13 10:53] VITALS: BP 131/93; PULSE 71
[2021-05-13] MEDS ORDERED: Ketorolac 30 MG/ML SDV IM ONE (10:55)
[2021-05-13] MEDS ORDERED: Orphenadrine 60 MG/2 ML Inj IM ONE (10:55)
== END 2021-05-13 11:20 | disposition home or self-care (01) ==
LOC: DL.ED 10:29
DX: S39.012A Strain of muscle, fascia and tendon of lower back, initial encounter (principal); M62.830 Muscle spasm of back; V86.52XA Driver of snowmobile injured in nontraffic accident, initial encounter
CPT/HCPCS: 96372; 99283; J1885; J2360

== ENCOUNTER 2023-05-08 14:28 | Emergency (ER) | payer SELFPAY ==
[2023-05-08] MEDS: Bacitracin Oint 1 GM U/D Packet TOP ONE (15:15)
[2023-05-08] MEDS: Take Home: Amoxicillin/Clavulanate K 875-125 MG Tab, 6 Tab Pack PO ONE (15:15)
[2023-05-08 15:30] VITALS: BP 132/83; PULSE 86
== END 2023-05-08 15:25 | disposition home or self-care (01) ==
LOC: DL.ED 14:28
DX: S61.256A Open bite of right little finger without damage to nail, initial encounter (principal); Z79.899 Other long term (current) drug therapy; W54.0XXA Bitten by dog, initial encounter
CPT/HCPCS: 73120; 99282; 99283; A9270

== ENCOUNTER 2024-11-08 21:14 | Emergency (ER) | payer SELFPAY ==
[~2024-11-08 21:14] MED LIST: Lidocaine 1% with EPINEPHrine 1:100,000 20 ML MDV NERVRT ONE
[2024-11-08] MEDS ORDERED: Albuterol 0.083% 2.5 MG/3 ML Neb Soln INH ONE (21:20)
[2024-11-08] MEDS: Iopamidol 612 MG/ML 100 ML Bottle IVPUSH ONE (21:24)
[2024-11-08] MEDS ORDERED: fentaNYL 100 MCG/2 ML SDV IV ONE (21:25)
[2024-11-08] MEDS ORDERED: fentaNYL 100 MCG/2 ML SDV ONE (21:25)
[2024-11-08] MEDS: fentaNYL 100 MCG/2 ML SDV IVPUSH ONE (21:27)
[2024-11-08 22:01] LABS: BASOPHILS PERCENT AUTO 0.1 % (0.0-1.0); EOSINOPHILS PERCENT AUTO 0.5 % (1.0-3.0); LYMPHOCYTES PERCENT AUTO 21.0 % (20.5-50.1); MONOCYTES PERCENT AUTO 3.4 % (2-8); NEUTROPHILS PERCENT AUTO 75.0 % (42.2-75.2); PLATELET COUNT,PLT 316 10^3/uL (150-450); RED BLOOD CELL COUNT 5.27 10^6/uL (4.6-6.2); WHITE BLOOD CELL COUNT,WBC 20.7 10^3/uL (5.0-10.0)
[2024-11-08 22:27] LABS: A/G RATIO 1.2; ALANINE AMINOTRANSFERASE,ALT 30 U/L (16-63); ASPARTATE AMNIOTRANSFERASE,AST 29 U/L (15-37); BILIRUBIN TOTAL 0.6 mg/dL (0.2-1.0); BLOOD UREA NITROGEN,BUN 16 mg/dL (7-18); CARBON DIOXIDE,CO2 24 mmol/L (21-32); CHLORIDE,CL 105 mmol/L (98-107); CREATINE KINASE,CK 215 U/L (39-308); CREATININE 1.12 mg/dL (0.70-1.30); GLUCOSE RANDOM 142 mg/dL (70-99); POTASSIUM,K 3.7 mmol/L (3.5-5.1); PROTEIN TOTAL,TP 6.5 g/dL (6.4-8.2); SODIUM,NA 140 mmol/L (136-145)
[2024-11-08 22:30] LABS: INR 1.0 (0.9-1.2); PTT,PARTIAL THROMBOPLSTIN TIME 23.0 SEC (22.0-34.0)
[2024-11-08 22:32] LABS: ESTIMATED GFR 94 mL/min (>=60); ETHANOL BLOOD MEDICAL < 3 mg/dL (0)
[2024-11-08 22:33] LABS: LACTIC ACID 2.6 mmol/L (0.4-2.0)
[2024-11-08 23:51] VITALS: BP 136/94; PULSE 123
== END 2024-11-08 22:22 ==
LOC: DL.ED 21:14
DX: S42.001A Fracture of unspecified part of right clavicle, initial encounter for closed fracture (principal); S01.112A Laceration without foreign body of left eyelid and periocular area, initial encounter; R07.89 Other chest pain; J45.909 Unspecified asthma, uncomplicated; V20.09XA Other motorcycle driver injured in collision with pedestrian or animal in nontraffic accident, initial encounter; Y93.89 Activity, other specified
CPT/HCPCS: 12011; 36415; 70450; 71045; 71260; 72125; 74177; 80053; 80307; 82550; 83605; 83690; 83735; 84484; 85025; 85610; 85730; 96374; 99285; 99291; J2004; J3010; J7613; Q9967; A9270-GY; J7030